=== PATIENT | male | born 1960 | race Caucasian/White ===

== ENCOUNTER 2021-12-05 14:18 | Emergency (ER) | payer BC, OTHER ==
[~2021-12-05] VITALS: Ht 188 cm; Wt 86.4 kg
[~2021-12-05 14:18] MED LIST: HYDR25SU32 RC; POLY119P2 PO
[2021-12-05 14:47] VITALS: BP 114/57
[2021-12-05] MEDS ORDERED: LIDOcaine 1% 30ml preserv. free vial IJ ONE (15:50)
== END 2021-12-05 17:10 | disposition home or self-care (01) ==
LOC: ER 14:19
DX: S61.215A Laceration without foreign body of left ring finger without damage to nail, initial encounter (principal); Z79.899 Other long term (current) drug therapy; W25.XXXA Contact with sharp glass, initial encounter; Y93.89 Activity, other specified; Y92.89 Other specified places as the place of occurrence of the external cause; Y99.0 Civilian activity done for income or pay
CPT/HCPCS: 12001; 73140; 99283; A6222; J7030; 90471; A6449

== ENCOUNTER 2023-11-11 16:24 | Emergency (ER) | payer BC, OTHER ==
[~2023-11-11] VITALS: Ht 188 cm; Wt 81.8 kg
[2023-11-11 16:39] VITALS: BP 110/66; PULSE 73; RESP 14; TEMP 98; O2SAT 97
[2023-11-11] MEDS ORDERED: HYDR-3965 PO (18:47)
[2023-11-11] MEDS ORDERED: CEPH-585 PO (18:47)
== END 2023-11-11 19:03 | disposition home or self-care (01) ==
LOC: ER 16:24
DX: M79.674 Pain in right toe(s) (principal); R22.41 Localized swelling, mass and lump, right lower limb; Z79.899 Other long term (current) drug therapy
CPT/HCPCS: 73630; 99283; L4360